=== PATIENT | male | born 1940 | race Caucasian/White ===

== ENCOUNTER → 2018-01-23 19:36 | Emergency (ER) | payer MEDICARE ==
[~2018-01-23 19:36] MED LIST: HYDROcodone/ACETAMIN 5-325 MG* 1 TAB PO ONE; Tetan/Diph/Pertus SYR(Tdap)* 0.5 ML SYR(BOOSTRIX) use SYR IM ONE; ceFAZolin 2 GM PREMIX in ORs 2 GM/50 ML BAG IVPB ONE
--- NOTE | 2018-01-23 22:22 | ED ---
Upper Extremity Pain - HPI Summary HPI Summary: Patient complains of laceration to tip of left thumb cut by a crossbow. Tetanus status unknown. Bleeding controlled. - History of Current Complaint Chief Complaint: EDLacSutureRecheck Stated Complaint: LT THUMB LACERATION Time Seen by Provider: 01/23/18 20:09 Hx Obtained From: Patient Mechanism Of Injury: Blunt Trauma Onset/Duration: Started Hours Ago Timing: Constant Severity Initially: Mild Severity Currently: Mild Pain Location: Finger Character: Throbbing Aggravating Factor(s): Movement Associated Signs & Symptoms: Positive: Negative - Allergies/Home Medications Allergies/Adverse Reactions: Allergies Allergy/AdvReac Type Severity Reaction Status Date / Time cephalexin [From Keflex] Allergy Insomnia Verified 01/23/18 20:00 dimenhydrinate Allergy Hives Verified 01/23/18 20:00 [From Dramamine] meperidine [From Demerol] Allergy Anaphylatic Verified 01/23/18 20:00 Shock theophylline Allergy Altered Verified 01/23/18 20:00 Mental Status PMH/Surg Hx/FS Hx/Imm Hx Cardiovascular History: Reports: Hx Cardiac Arrest History: Denies: Hx Dialysis Neurological History: Denies: Hx CVA Infectious Disease History: No Infectious Disease History: Denies: Traveled Outside the [place] in Last 30 Days - Social History Alcohol Use: Occasionally Substance Use Type: Reports: None Smoking Status (MU): Never Smoked Tobacco Review of Systems Constitutional: Negative Eyes: Negative ENT: Negative Cardiovascular: Negative Respiratory: Negative Gastrointestinal: Negative Genitourinary: Negative Musculoskeletal: Negative Skin: Other Neurological: Negative Psychological: Normal All Other Systems Reviewed And Are Negative: Yes Physical Exam - Summary Physical Exam Summary: Avulsion of distal tip of left thumb involving nailbed. Sensation intact partially on avulsed portion. Function of left thumb intact Triage Information Reviewed: Yes Vital Signs On Initial Exam: Initial Vitals Temp Pulse Resp BP Pulse Ox 98.4 F 74 16 155/91 95 01/23/18 19:57 01/23/18 19:57 01/23/18 19:57 01/23/18 19:57 01/23/18 19:57 Vital Signs Reviewed: Yes Appearance: Positive: Well-Appearing Skin: Positive: Warm Head/Face: Positive: Normal Head/Face Inspection Eyes: Positive: Normal Neck: Positive: Supple Respiratory/Lung Sounds: Positive: Clear to Auscultation Cardiovascular: Positive: Normal Abdomen Description: Positive: Nontender Musculoskeletal: Positive: Normal Neurological: Positive: Normal Psychiatric: Positive: Normal AVPU Assessment: Alert - [place] Coma Scale Best Eye Response: 4 - Spontaneous Best Motor Response: 6 - Obeys Commands Best Verbal Response: 5 - Oriented Coma Scale Total: 15 Procedures - Laceration/Wound Repair 1 Location: upper extremity Description: Irregular Anesthesia: Digital, 1.0% Length, Depth and Shape: 5cm x 1cm Betadine Prep?: Yes Irrigated w/ Saline (ccs): 1,000 Laceration/Wound Explored: clean Debridement: minimal Number of Sutures: 10 - 6.0 ethilon Layer Closure?: No Sterile Dressing Applied?: No Diagnostics - Vital Signs Vital Signs Temp Pulse Resp BP Pulse Ox 01/23/18 19:57 98.4 F 74 16 155/91 95 - Laboratory Lab Statement: Any lab studies that have been ordered have been reviewed, and results considered in the medical decision making process. Course/Dx - Course Course Of Treatment: Patient complains of laceration to tip of left thumb cut by a crossbow. Tetanus status unknown. Bleeding controlled. Physical exam: Avulsion of distal tip of left thumb involving nailbed. Sensation intact partially on avulsed portion. Function of left thumb intact. X-ray positive for bony involvement. 2 g Ancef IV. bactrim bid x 10 days. tetanus booster given. Sensation partially intact on avulsed portion of distal tip of left thumb. Complete avulsion portion reattached with pre-alignment of nailbed Patient has been advised some portion of avulsed tissue may . A metal splint placed on left thumb. Return to the ED for any new or worsening symptoms including redness, warmth, purulent drainage. - Diagnoses Provider Diagnoses: Laceration, Open fracture of distal phalanx Discharge - Sign-Out/Discharge Documenting (check all that apply): Patient Departure - Discharge Plan Condition: Stable Disposition: HOME Prescriptions: HYDROcodone/ACETAMIN 5-325 MG* [[place] 5-325 TAB*] 1 tab PO BID 2 Days #4 tab MDD 2 tabs Sulfamethox/Trimethoprim DS* [Bactrim DS 800/160 TAB*] 1 tab PO BID 10 Days #20 tab Patient Education Materials: Care For Your Stitches (ED), Laceration (ED), Hand Fracture (ED), Finger Laceration (ED) Referrals: No Primary Care Phys,NOPCP [Primary Care Provider] - Humaira Escobedo MD [Medical Doctor] - Additional Instructions: Sutures out in 10 days. Ibuprofen for pain. Take antibiotics as directed. May wash wound with warm running water and soap starting Thursday. Follow-up with orthopedics Dr. Weller for further evaluation. Return to the ED for any new or worsening symptoms - Billing Disposition and Condition Condition: STABLE Disposition: Home
[2018-01-23 22:37] VITALS: BP 142/67
--- NOTE | 2018-01-24 08:54 | RAD ---
INDICATION: Laceration of the left thumb nailbed COMPARISON: None TECHNIQUE: 3 views of the left thumb were obtained. FINDINGS: Irregularity of the soft tissues at the distal left thumb are consistent with the patient's reported history of a laceration. Depicted best on the oblique view of the thumb is a 3 mm hyperdense fragment which could either be a bony avulsion of the distal tuft or foreign body. IMPRESSION: Radiographic findings are consistent with the reported history of soft tissue injury to the distal left thumb. There is a 3 mm hyperdense focus that is either an avulsion fracture of the tuft or a subcutaneous foreign body. Please correlate to details of the patient's injury. R2
== END | disposition home or self-care (01) ==
LOC: ED 19:36
DX: S62.525B Nondisplaced fracture of distal phalanx of left thumb, initial encounter for open fracture (principal); W26.8XXA Contact with other sharp object(s), not elsewhere classified, initial encounter; Y92.9 Unspecified place or not applicable; Z23 Encounter for immunization; Z88.1 Allergy status to other antibiotic agents; Z88.5 Allergy status to narcotic agent; Z88.8 Allergy status to other drugs, medicaments and biological substances
CPT/HCPCS: 12002; 90471; 90715; 96374; 99282; J0690